=== PATIENT | female | born 1995 ===

== ENCOUNTER 2021-03-04 15:44 | Emergency (ER) | payer BC ==
[2021-03-04] MEDS ORDERED: Sodium Chloride 0.9% 1,000 ML IV ONE (17:41)
--- NOTE | 2021-03-04 17:41 | EDM.PDOC ---
ED HPI GENERAL MEDICAL PROBLEM - General Chief Complaint: Headache Stated Complaint: STEELE/LOW BP Time Seen by Provider: 03/04/21 17:39 Source of Information: Reports: Patient History Limitations: Reports: No Limitations - History of Present Illness INITIAL COMMENTS - FREE TEXT/NARRATIVE: HISTORY AND PHYSICAL: History of present illness: Patient is a 25-year-old female who presents to the emergency room with complaints of cough, headache and sore throat x3 days. Patient initially presented to the walk-in clinic for evaluation but due to her low blood pressure they wanted her seen in the emergency room (patient does not know what her BP normally runs). Patient denies any fever, chills, change in vision, syncope or near syncope. Denies any chest pain, back pain or shortness of breath. Denies any abdominal pain, nausea, vomiting, diarrhea, constipation or dysuria. Has not noted any blood in urine or stool. No concern for . Patient has been eating and drinking appropriately. Patient has had her COVID-19 vaccination. No recent sick contacts. *Kyrgyz Speaking: significant other at bedside to translate. ANNA offered Review of systems: As per history of present illness and below otherwise all systems reviewed and negative. Past medical history: As per history of present illness and as reviewed below otherwise noncontributory. Surgical history: As per history of present illness and as reviewed below otherwise noncontributory. Social history: See social history for further information Family history: As per history of present illness and as reviewed below otherwise noncontributory. Physical exam: General: Well developed and well nourished 25 year old female. Alert and orientated x 3. Nontoxic in appearance and in no acute distress. Vital signs are stable and have been reviewed by me. Nursing notes were reviewed. HEENT: Atraumatic, normocephalic, pupils equal and reactive bilaterally, negative for conjunctival pallor or scleral icterus, frontal sinus tenderness noted, mucous membranes moist, TMs normal bilaterally, throat clear, neck supple, nontender, trachea midline. No drooling or trismus noted. No meningeal signs. No hot potato voice noted. Lungs: Clear to auscultation bilaterally. No wheezes, rales, or rhonchi. Chest nontender. Normal work of breathing, no accessory muscles used. Heart: S1S2, regular rate and rhythm without overt murmur, gallops, or rubs. No JVD. No peripheral edema Abdomen: Soft, nondistended, nontender. Normoactive bowel sounds. Negative for masses or costovertebral tenderness. Skin: Intact, warm, dry. No lesions or rashes noted. Hematologic: No petechiae or purpra. Mucosa appropriate color and normal nail bed color and refill. Extremities: Atraumatic, moves all extremities per self without difficulty or deficits, negative for cords or calf pain. Neurovascular unremarkable. Neuro: Awake, alert, oriented. Cranial nerves II through XII unremarkable. Cerebellum unremarkable. Motor and sensory unremarkable throughout. Exam nonfocal. Psychiatric: Mood and affect are appropriate. Normal thought process. Answering questions appropriately. Notes: *This patient was seen and evaluated during the 2019 SARS-CoV-2 novel coronavirus pandemic period. Community viral transmission is ongoing at time of this encounter and the emergency department is operating under pandemic response procedures. Lab work shows no acute findings, she does have a slight leukocytosis. Chest x- ray is unremarkable. Strep screening is negative. Covid screening is negative. She states her symptoms have improved after the fluids and medications. She does appear to have early sinusitis and bronchitis, will treat with Z-Jassi and have her follow-up with primary care. Vital signs are stable, orthostatics are unremarkable. I have talked with the patient about today's findings, in addition to providing specific details for plan of care. Reassessment at the time of disposition demonstrates that the patient is in no acute distress. The patient is stable for discharge, counseling was provided and we discussed in great detail signs and symptoms that would prompt them to return to the Emergency Department. Medication, follow up and supportive care measures were reviewed and discussed. Voices understanding and is agreeable to plan of care. Denies any further questions or concerns at this time. Diagnostics: CBC, CMP, Strep, COVID, UA, HCGU Therapeutics: IV fluids, Toradol Prescription: Zpak, Tylenol with Cod Elix Impression: Sinus headache Bronchitis Plan: 1. You were evaluated today on an emergent basis. Your lab work shows no acute findings. Take the medications as directed. 2. You can alternate Tylenol and ibuprofen as needed for pain and fever management. 3. We encourage you to follow up with your primary care provider and/or recommended specialist in the next few days for re-evaluation and further care/management. 4. If your symptoms should worsen, new symptoms develop or any of the signs and symptoms we discussed should arise please return to the emergency room or call 911 (if needed). Definitive disposition and diagnosis as appropriate pending reevaluation and review of above. throat and head Pain Score (Numeric/FACES): 6 - Related Data Allergies Allergy/AdvReac Type Severity Reaction Status Date / Time No Known Allergies Allergy Verified 03/04/21 16:38 Home Meds: Home Meds Acetaminophen/Codeine [Tylenol/Codeine 120-12 MG/5 ML] 5 ml PO Q4H PRN #118 ml 03/04/21 [Rx] Azithromycin [Zithromax] 1 dose PO DAILY 5 Days #6 tab 03/04/21 [Rx] Past Medical History - Past Health History Medical/Surgical History: Denies Medical/Surgical History HEENT History: Reports: None Cardiovascular History: Reports: None Respiratory History: Reports: None Gastrointestinal History: Reports: None Genitourinary History: Reports: None DIETARY DIRECTOR History: Reports: None Musculoskeletal History: Reports: None Neurological History: Reports: None Psychiatric History: Reports: None Endocrine/Metabolic History: Reports: None Hematologic History: Reports: None Immunologic History: Reports: None Oncologic (Cancer) History: Reports: None Dermatologic History: Reports: None - Infectious Disease History Infectious Disease History: Reports: None - Past Surgical History Head Surgeries/Procedures: Reports: None Social & Family History - Family History Family Medical History: No Pertinent Family History - Tobacco Use Tobacco Use Status *Q: Never Tobacco User Second Hand Smoke Exposure: No - Caffeine Use Caffeine Use: Reports: None - Recreational Drug Use Recreational Drug Use: No ED ROS GENERAL - Review of Systems Review Of Systems: Comprehensive ROS is negative, except as noted in HPI. ED EXAM, GENERAL - Physical Exam Exam: See Below (See dictaiton) Course - Vital Signs Last Recorded V/S: Last Vital Signs Temp 97.7 F 03/04/21 20:25 Pulse 73 03/04/21 20:25 Resp 18 03/04/21 20:25 BP 98/58 L 03/04/21 20:25 Pulse Ox 97 03/04/21 20:25 Orthostatic Blood Pressure [ 106/60 Standing] Orthostatic Blood Pressure [ 116/78 Sitting] - Orders/Labs/Meds Labs: Laboratory Tests 03/04/21 03/04/21 03/04/21 Range/Units 18:12 18:12 18:45 WBC 11.04 H (4.0-11.0) K/uL RBC 4.00 L (4.30-5.90) M/uL Hgb 12.8 (12.0-16.0) g/dL Hct 37.3 (36.0-46.0) % MCV 93.3 (80.0-98.0) fL MCH 32.0 (27.0-32.0) pg MCHC 34.3 (31.0-37.0) g/dL RDW Std Deviation 46.0 (28.0-62.0) fl RDW Coeff of Vaibhav 14 (11.0-15.0) % Plt Count 203 (150-400) K/uL MPV 11.40 (7.40-12.00) fL Neut % (Auto) 76.4 (48.0-80.0) % Lymph % (Auto) 13.6 L (16.0-40.0) % [place] % (Auto) 7.6 (0.0-15.0) % Eos % (Auto) 2.2 (0.0-7.0) % Baso % (Auto) 0.2 (0.0-1.5) % Neut # (Auto) 8.4 H (1.4-5.7) K/uL Lymph # (Auto) 1.5 (0.6-2.4) K/uL [place] # (Auto) 0.8 (0.0-0.8) K/uL Eos # (Auto) 0.2 (0.0-0.7) K/uL Baso # (Auto) 0.0 (0.0-0.1) K/uL Nucleated RBC % 0.0 /100WBC Nucleated RBCs # 0 K/uL Sodium 139 (136-145) mmol/L Potassium 4.1 (3.5-5.1) mmol/L Chloride 104 (98-107) mmol/L Carbon Dioxide 30.1 (21.0-32.0) mmol/L BUN 14 (7.0-18.0) mg/dL Creatinine 0.8 (0.6-1.0) mg/dL Est Cr Clr Drug Dosing 90.77 mL/min Estimated GFR (MDRD) > 60.0 ml/min Glucose 98 (74-106) mg/dL Calcium 8.7 (8.5-10.1) mg/dL Total Bilirubin 0.2 (0.2-1.0) mg/dL AST 26 (15-37) IU/L ALT 30 (14-63) IU/L Alkaline Phosphatase 60 (46-116) U/L Total Protein 7.4 (6.4-8.2) g/dL Albumin 3.7 (3.4-5.0) g/dL Globulin 3.7 (2.6-4.0) g/dL Albumin/Globulin Ratio 1.0 (0.9-1.6) Urine Color Urine Appearance Urine pH (5.0-8.0) Ur Specific [place] (1.001-1.035) Urine Protein (NEGATIVE) mg/dL Urine Glucose (UA) (NEGATIVE) mg/dL Urine Ketones (NEGATIVE) mg/dL Urine Occult Blood (NEGATIVE) Urine Nitrite (NEGATIVE) Urine Bilirubin (NEGATIVE) Urine Urobilinogen (<2.0) EU/dL Ur Leukocyte Esterase (NEGATIVE) Urine HCG, Qual (NEGATIVE) SARS-CoV-2 RNA (AXEL) NEGATIVE (NEGATIVE) Group A Strep (PCR) (NOT DETECT) 03/04/21 03/04/21 03/04/21 Range/Units 18:45 19:00 19:00 WBC (4.0-11.0) K/uL RBC (4.30-5.90) M/uL Hgb (12.0-16.0) g/dL Hct (36.0-46.0) % MCV (80.0-98.0) fL MCH (27.0-32.0) pg MCHC (31.0-37.0) g/dL RDW Std Deviation (28.0-62.0) fl RDW Coeff of Vaibhav (11.0-15.0) % Plt Count (150-400) K/uL MPV (7.40-12.00) fL Neut % (Auto) (48.0-80.0) % Lymph % (Auto) (16.0-40.0) % [place] % (Auto) (0.0-15.0) % Eos % (Auto) (0.0-7.0) % Baso % (Auto) (0.0-1.5) % Neut # (Auto) (1.4-5.7) K/uL Lymph # (Auto) (0.6-2.4) K/uL [place] # (Auto) (0.0-0.8) K/uL Eos # (Auto) (0.0-0.7) K/uL Baso # (Auto) (0.0-0.1) K/uL Nucleated RBC % /100WBC Nucleated RBCs # K/uL Sodium (136-145) mmol/L Potassium (3.5-5.1) mmol/L Chloride (98-107) mmol/L Carbon Dioxide (21.0-32.0) mmol/L BUN (7.0-18.0) mg/dL Creatinine (0.6-1.0) mg/dL Est Cr Clr Drug Dosing mL/min Estimated GFR (MDRD) ml/min Glucose (74-106) mg/dL Calcium (8.5-10.1) mg/dL Total Bilirubin (0.2-1.0) mg/dL AST (15-37) IU/L ALT (14-63) IU/L Alkaline Phosphatase (46-116) U/L Total Protein (6.4-8.2) g/dL Albumin (3.4-5.0) g/dL Globulin (2.6-4.0) g/dL Albumin/Globulin Ratio (0.9-1.6) Urine Color YELLOW Urine Appearance CLEAR Urine pH 6.0 (5.0-8.0) Ur Specific [place] 1.020 (1.001-1.035) Urine Protein NEGATIVE (NEGATIVE) mg/dL Urine Glucose (UA) NEGATIVE (NEGATIVE) mg/dL Urine Ketones NEGATIVE (NEGATIVE) mg/dL Urine Occult Blood NEGATIVE (NEGATIVE) Urine Nitrite NEGATIVE (NEGATIVE) Urine Bilirubin NEGATIVE (NEGATIVE) Urine Urobilinogen 0.2 (<2.0) EU/dL Ur Leukocyte Esterase NEGATIVE (NEGATIVE) Urine HCG, Qual NEGATIVE (NEGATIVE) SARS-CoV-2 RNA (AXEL) (NEGATIVE) Group A Strep (PCR) NOT DETECTED (NOT DETECT) Meds: Medications Discontinued Medications Generic Name Dose Route Start Last Admin Trade Name Freq PRN Reason Stop Dose Admin Sodium Chloride 1,000 mls @ 999 mls/hr 03/04/21 17:41 03/04/21 18:09 Normal Saline IV 03/04/21 18:41 999 mls/hr STAT ONE Administration Ketorolac Tromethamine 30 mg 03/04/21 17:51 03/04/21 18:09 Ketorolac 30 Mg/Ml Sdv IVPUSH 03/04/21 17:52 30 mg ONETIME ONE Administration Departure - Departure Time of Disposition: 20:18 Disposition: Home, Self-Care 01 Clinical Impression: Sinus headache, Bronchitis - Discharge Information Prescriptions: Acetaminophen/Codeine [Tylenol/Codeine 120-12 MG/5 ML] 5 ml PO Q4H PRN #118 ml PRN Reason: Pain Azithromycin [Zithromax] 1 dose PO DAILY 5 Days #6 tab Instructions: Acute Bronchitis, Adult Referrals: PCP,None [Primary Care Provider] - Forms: ED Department Discharge Additional Instructions: The following information is given to patients seen in the emergency department who are being discharged to home. This information is to outline your options for follow-up care. We provide all patients seen in our emergency department with a follow-up referral. The need for follow-up, as well as the timing and circumstances, are variable depending upon the specifics of your emergency department visit. If you don't have a primary care physician on staff, we will provide you with a referral. We always advise you to contact your personal physician following an emergency department visit to inform them of the circumstance of the visit and for follow-up with them and/or the need for any referrals to a consulting specialist. The emergency department will also refer you to a specialist when appropriate. This referral assures that you have the opportunity for follow-up care with a specialist. All of these measure are taken in an effort to provide you with optimal care, which includes your follow-up. Under all circumstances we always encourage you to contact your private physician who remains a resource for coordinating your care. When calling for follow-up care, please make the office aware that this follow-up is from your recent emergency room visit. If for any reason you are refused follow-up, please contact the [facility] Emergency Department at and asked to speak to the emergency department charge nurse. [facility] [address] [place] [id number] [facility] [address] [place] [address] Thank you for choosing the [facility] emergency department in [place] for your medical needs today. It was a pleasure caring for you. Today you were seen in the emergency department for cough and headache. 1. You were evaluated today on an emergent basis. Your lab work shows no acute findings. Take the medications as directed. 2. You can alternate Tylenol and ibuprofen as needed for pain and fever management. 3. We encourage you to follow up with your primary care provider and/or recommended specialist in the next few days for re-evaluation and further care/management. 4. If your symptoms should worsen, new symptoms develop or any of the signs and symptoms we discussed should arise please return to the emergency room or call 911 (if needed). Sepsis Event Note (ED) - Evaluation Sepsis Screening Result: No Definite Risk - Focused Exam Vital Signs: Vital Signs Temp Pulse Resp BP Pulse Ox 03/04/21 20:25 97.7 F 73 18 98/58 L 97 03/04/21 17:46 68 94/56 L 98 03/04/21 16:34 97.4 F 68 18 94/56 L 98
[2021-03-04] MEDS ORDERED: Ketorolac 30 MG/ML SDV IVPUSH ONE (17:51)
[2021-03-04 19:02] LABS: BLOOD UREA NITROGEN,BUN 14 mg/dL (7.0-18.0); CARBON DIOXIDE,CO2 30.1 mmol/L (21.0-32.0); CHLORIDE,CL 104 mmol/L (98-107); GLUCOSE RANDOM 98 mg/dL (74-106); POTASSIUM,K 4.1 mmol/L (3.5-5.1); SODIUM,NA 139 mmol/L (136-145)
--- NOTE | 2021-03-04 20:27 | CR ---
INDICATION: PAIN/Shortness of breath. CHEST, ONE VIEW An AP radiograph of the chest was performed. Comparison: No previous studies are currently available for comparison. The exam is limited as the lung apices are not fully included. The lungs appear clear and no pleural effusions are identified. The cardiomediastinal silhouette and pulmonary vasculature appear normal, as do the visualized bones. IMPRESSION: No acute intrathoracic abnormality identified. EMMANUEL BROWN MD [employer] Dictated by: Vern Brown MD @ 03/04/2021 20:27:11 (Electronically Signed)
== END 2021-03-04 20:25 | disposition home or self-care (01) ==
LOC: MW.ED 15:44
DX: J40 Bronchitis, not specified as acute or chronic (principal); Z20.822 Contact with and (suspected) exposure to COVID-19
CPT/HCPCS: 36415; 71045; 80053; 81003; 81025; 85025; 87635; 87651; 96374; 99284; J1885; J7030; U0002

== ENCOUNTER 2023-02-02 06:46 | Inpatient (IN) | payer BC ==
[2023-02-02] MEDS ORDERED: ePHEDrine 50 MG/ML SDV IVPUSH PRN ×2 (09:22)
[2023-02-02] MEDS ORDERED: Phenylephrine HCl 0.5 MG/5 ML AMP IVPUSH PRN (09:22)
[2023-02-02] MEDS ORDERED: Ropivacaine HCl/PF 400 MG in Premix Bag 1 BAG EPIDUR SCH (09:30)
[2023-02-02] MEDS ORDERED: Water For Irrigation,Sterile 1,000 ML Container IRR PRN (10:04)
[2023-02-02] MEDS ORDERED: Misoprostol 200 MCG Tab PO PRN (10:04)
[2023-02-02] MEDS ORDERED: Lidocaine 1% 50 ML MDV INJECT PRN (10:04)
[2023-02-02] MEDS ORDERED: Sodium Chloride 0.9% 10 ML Syringe FLUSH PRN (10:04)
[2023-02-02] MEDS ORDERED: Sodium Chloride 0.9% 2.5 ML Syringe FLUSH PRN (10:04)
[2023-02-02] MEDS ORDERED: Butorphanol 1 MG/ML SDV IVPUSH PRN (10:04)
[2023-02-02] MEDS ORDERED: Terbutaline 1 MG/ML SDV SUBCUT PRN (10:04)
[2023-02-02] MEDS ORDERED: Methylergonovine 0.2 MG/1 ML Amp IM PRN (10:04)
[2023-02-02] MEDS ORDERED: Ondansetron 4 MG/2 ML SDV IVPUSH PRN (10:04)
[2023-02-02] MEDS ORDERED: Tranexamic Acid 1,000 MG in Sodium Chloride 0.9% 100 ML IV PRN (10:04)
[2023-02-02] MEDS ORDERED: Sodium Chloride 0.9% 20 ML SDV IV PRN (10:04)
[2023-02-02] MEDS ORDERED: Carboprost Tromethamine 250 MCG/1 mL Vial IM PRN (10:04)
[2023-02-02] MEDS ORDERED: Oxytocin/0.9 % Sodium Chloride 30 UNIT/500 ML BAG IV SCH ×2 (10:15)
[2023-02-02 10:55] LABS: HEMATOCRIT 37.8 % (36.0-46.0); HEMOGLOBIN 13.1 g/dL (12.0-16.0); MEAN CORPUSCULAR HEMOGLOBIN 32.9 pg (27.0-32.0); MEAN CORPUSCULAR HGB CONC 34.7 g/dL (31.0-37.0); MEAN PLATELET VOLUME 12.1 fL (7.40-12.00); RED BLOOD CELL COUNT 3.98 M/uL (4.30-5.90); WHITE BLOOD CELL COUNT,WBC 9.41 K/uL (4.0-11.0)
[2023-02-02] MEDS: Lactated Ringers 1,000 ML IV SCH ×3 (11:02→19:42)
[2023-02-02] MEDS ORDERED: Nalbuphine HCl 10 MG/ 1ML Amp IVPUSH PRN (14:47)
[2023-02-03] MEDS ORDERED: oxyCODONE 5 MG Tab PO PRN (02:03)
[2023-02-03] MEDS ORDERED: Benzocaine/Menthol 20%-0.5% Spray 78 GM Cannister TOP PRN (02:03)
[2023-02-03] MEDS ORDERED: Ibuprofen 400 MG Tab PO PRN (02:03)
[2023-02-03] MEDS ORDERED: Docusate Sodium 100 MG Cap PO PRN (02:03)
[2023-02-03] MEDS ORDERED: Bisacodyl 10 MG Supp RECTAL PRN (02:03)
[2023-02-03] MEDS ORDERED: Lanolin 100% Cream 7 GM Tube TOP PRN (02:03)
[2023-02-03] MEDS ORDERED: Acetaminophen 500 MG Tab PO PRN ×2 (02:03)
[2023-02-03 02:27] LABS: PH,UMBILICAL ARTERIAL 7.241 (7.18-7.38)
[2023-02-03 02:28] LABS: PH,UMBILICAL VENOUS 7.252 (7.25-7.45)
[2023-02-03] MEDS: Witch Hazel Medicated Pads 40/Jar TOP PRN (03:01)
[2023-02-03] MEDS: Ibuprofen 800 MG Tab PO PRN ×2 (05:15→12:06)
[2023-02-03 16:20] LABS: HEMATOCRIT 34.9 % (36.0-46.0); HEMOGLOBIN 11.8 g/dL (12.0-16.0); MEAN CORPUSCULAR HEMOGLOBIN 32.6 pg (27.0-32.0); MEAN CORPUSCULAR HGB CONC 33.8 g/dL (31.0-37.0); MEAN CORPUSCULAR VOLUME 96.4 fL (80.0-98.0); PLATELET COUNT,PLT 160 K/uL (150-400); RED BLOOD CELL COUNT 3.62 M/uL (4.30-5.90); WHITE BLOOD CELL COUNT,WBC 15.85 K/uL (4.0-11.0)
[2023-02-03 16:42] LABS: BAND ABSOLUTE MAN 0.2; BAND PERCENT MAN 1 %; LYMPHOCYTES ABSOLUTE MAN 2.1 (0.6-2.4); LYMPHOCYTES PERCENT MAN 13 % (16.0-40.0); MONOCYTES PERCENT MAN 6 % (0.0-15.0); SEG NEUTROPHILS ABSOLUTE MAN 12.7 (1.4-5.7); SEG NEUTROPHILS PERCENT MAN 80 % (48.0-80.0)
[2023-02-04] MEDS: Witch Hazel Medicated Pads 40/Jar TOP PRN (05:30)
[2023-02-04] MEDS: Ibuprofen 800 MG Tab PO PRN (07:25)
== END 2023-02-04 12:00 | disposition still patient (30) | DRG 560 ==
LOC: MW.OBCHECK 06:46 → MW.OB 06:47 → MW.OBCHECK 10:04 → MW.OB 10:04 → OBSVTOIN 02-03 01:47 → MW.OB 02-03 05:19
PROVIDERS: ADMIT Obstetrics & Gynecology; ATTEND Obstetrics & Gynecology
PROC: 10E0XZZ Delivery of Products of Conception, External Approach (ICD-10-PCS; principal; 2023-02-03)
PROC: 3E0R3BZ Introduction of Anesthetic Agent into Spinal Canal, Percutaneous Approach (ICD-10-PCS; 2023-02-03)
PROC: 00HU33Z Insertion of Infusion Device into Spinal Canal, Percutaneous Approach (ICD-10-PCS; 2023-02-03)
DX: O48.0 Post-term pregnancy (principal); O42.02 Full-term premature rupture of membranes, onset of labor within 24 hours of rupture; O77.0 Labor and delivery complicated by meconium in amniotic fluid; Z3A.41 41 weeks gestation of pregnancy; Z37.0 Single live birth
CPT/HCPCS: 36415; 51702; 59025; 59409; 82803; 84112; 85025; 85027; 86592; 86850; 86900; 86901; A9270-GY; J2300; J2405; J2590; J7120

== ENCOUNTER 2024-04-17 00:51 | Emergency (ER) | payer BC ==
[2024-04-17] MEDS: Loperamide 2 MG Cap PO ONE (01:37)
[2024-04-17] MEDS: Ondansetron 4 MG Tab.DIS PO ONE ×2 (01:37→02:52)
[2024-04-17] MEDS: Acetaminophen 500 MG Tab PO ONE (01:37)
[2024-04-17] MEDS: Famotidine 20 MG Tab PO ONE (01:37)
== END 2024-04-17 02:54 | disposition home or self-care (01) ==
LOC: MW.ED 00:51
DX: R11.10 Vomiting, unspecified (principal); R19.7 Diarrhea, unspecified
CPT/HCPCS: 99283; A9270